=== PATIENT | female | born 1940 | race Caucasian/White ===

== ENCOUNTER → 2017-02-26 10:19 | Outpatient (CLI) | payer MEDICARE, OTHER ==
[~2017-02-26 10:19] MED LIST: CARDIZEM LA120 MG PO; GLUCOSAMINE & C1 CAP PO; IBUPROFEN600 MG PO; VITAMIN D31000 UNIT PO
[2017-05-30 07:07] VITALS: BMI 24.2
== END | disposition home or self-care (01) ==
LOC: D.CT 10:19
DX: R31.9 Hematuria, unspecified (principal)

== ENCOUNTER → 2017-05-04 20:19 | Outpatient (CLI) | payer MEDICARE, OTHER ==
[2017-05-30 07:07] VITALS: BMI 24.2
== END | disposition home or self-care (01) ==
LOC: D.LABREF 20:19
DX: R82.90 Unspecified abnormal findings in urine (principal)

== ENCOUNTER 2017-05-30 05:55 | Day surgery (SDC) | payer MEDICARE, OTHER ==
[~2017-05-30] VITALS: Ht 157.5 cm; Wt 59.9 kg
--- NOTE | ~2017-05-30 | OP ---
PATIENT NAME: SAM LENZ MEDICAL RECORD: [id number] :40 LOCATION:D.OPS ADMISSION DATE: SURGEON: COLLIN ZAVALA MD DATE OF OPERATION: 05/30/2017 SURGEON: Collin Zavala MD ANESTHESIA: MAC by Max Lockhart CRNA. PREOPERATIVE DIAGNOSIS: Hematuria. PROCEDURE: Cystoscopy. FINDINGS: Single ureteral orifices bilaterally. No bladder tumors. Diffuse bladder inflammation. BLOOD LOSS: None. CLINICAL HISTORY: This is a 76-year-old female who had an episode of gross hematuria. At that time, she had a urinary tract infection and this was treated with antibiotics. She had a CT scan of the abdomen and pelvis performed in January of 2017 and this was normal. Gallstones in the gallbladder were seen. Also, sigmoid diverticulosis was seen. Otherwise, the urinary tract was normal. She denies any voiding symptoms at the present time. Urinalysis continues to show microscopic hematuria. Urine cytology was normal. She has never smoked. She comes today for cystoscopy to complete her hematuria workup. She is allergic to CASTOR OIL. She was given Ancef 1 gram IV regional transfer liaison to the OR. DESCRIPTION OF PROCEDURE: The patient was given IV sedation. She was then placed into dorsal lithotomy position and prepped and draped. A 17-Maltese cystoscope with 30-degree lens was used for visualization. She has diffuse bladder inflammation, but no bladder tumors. Single ureteral orifices were seen bilaterally. The bladder was then emptied through the scope and the scope was removed. The patient will be seen in followup on a p.r.n. basis. TRANSINT:[id number] Voice Confirmation ID: [id number] DOCUMENT ID: [id number] COLLIN ZAVALA MD at 1339 CC: [id number] DICTATION DATE: 05/30/17 0916 MANAGER ATHLETICS: 05/30/17 1226 [facility] 05/30/17 [place] [id number]
[~2017-05-30 05:55] MED LIST changes: -IBUPROFEN600 MG PO; -VITAMIN D31000 UNIT PO
[2017-05-30 07:06] LABS: HEMATOCRIT 35.3 % (36.0-48.0); HEMOGLOBIN 11.6 g/dL (12-16); MCH 29.3 pg (26.0-34.0); MCHC 32.9 g/dL (31.0-37.0); MCV 89.1 fL (80.0-100.0); MEAN PLATELET VOLUME 10.8 fL (7.4-10.4); RBC 3.96 10x6/uL (4.00-5.40); RDW 12.8 % (11.5-14.5); WBC 6.1 10x3/uL (4.8-10.8)
[2017-05-30] MEDS ORDERED: IBUPROFEN600 MG PO (07:06)
[2017-05-30 07:07] VITALS: BP 124/82; Ht 157.5 cm; Wt 59.9 kg
[2017-05-30] MEDS ORDERED: VITAMIN D31000 UNIT PO (07:07)
== END 2017-05-30 10:00 | disposition home or self-care (01) ==
LOC: D.OPS 05:55 → D.PAN 08:30 → D.OPS 10:00
PROVIDERS: Anesthesiology
DX: R31.29 Other microscopic hematuria (principal); Z01.812 Encounter for preprocedural laboratory examination

== ENCOUNTER → 2018-01-22 14:28 | Outpatient (CLI) | payer MEDICARE, OTHER ==
[2017-05-30 07:07] VITALS: BMI 24.2
[~2018-01-22 14:28] MED LIST changes: +IBUPROFEN600 MG PO; +VITAMIN D31000 UNIT PO
== END | disposition home or self-care (01) ==
LOC: D.CT 14:28
DX: R10.9 Unspecified abdominal pain (principal)

== ENCOUNTER → 2018-02-08 09:06 | Outpatient (CLI) | payer MEDICARE, OTHER ==
[2017-05-30 07:07] VITALS: BMI 24.2
[~2018-02-08 09:06] MED LIST changes: +BAYER CHEWABLE81 MG PO
== END | disposition home or self-care (01) ==
LOC: D.NM 09:06
DX: K80.20 Calculus of gallbladder without cholecystitis without obstruction (principal)

== ENCOUNTER 2018-02-18 06:07 | Day surgery (SDC) | payer MEDICARE, OTHER ==
[~2018-02-18] VITALS: Ht 157.5 cm; Wt 62.3 kg
[~2018-02-18 06:07] MED LIST changes: -BAYER CHEWABLE81 MG PO
[2018-02-18 06:25] LABS: HEMATOCRIT 35.6 % (36.0-48.0); HEMOGLOBIN 11.8 g/dL (12-16); MCH 29.4 pg (26.0-34.0); MCHC 33.1 g/dL (31.0-37.0); MCV 88.8 fL (80.0-100.0); MEAN PLATELET VOLUME 10.1 fL (7.4-10.4); RBC 4.01 10x6/uL (4.00-5.40); RDW 12.7 % (11.5-14.5); WBC 7.5 10x3/uL (4.8-10.8)
[2018-02-18] MEDS ORDERED: BAYER CHEWABLE81 MG PO (07:12)
[2018-02-18 07:20] VITALS: BP 132/85; Ht 157.5 cm; Wt 62.3 kg
== END 2018-02-18 09:55 | disposition home or self-care (01) ==
LOC: D.OPS 06:07
PROVIDERS: Anesthesiology
DX: K57.30 Diverticulosis of large intestine without perforation or abscess without bleeding (principal); K59.00 Constipation, unspecified; Z01.812 Encounter for preprocedural laboratory examination

== ENCOUNTER → 2018-09-16 21:10 | Outpatient (CLI) | payer MEDICARE ==
[2018-02-18 07:20] VITALS: BMI 25.1
[~2018-09-16 21:10] MED LIST changes: +BAYER CHEWABLE81 MG PO
== END | disposition home or self-care (01) ==
LOC: D.LABREF 21:10
PROVIDERS: ATTEND Urology
DX: R31.9 Hematuria, unspecified (principal)

== ENCOUNTER → 2018-11-15 18:53 | Outpatient (CLI) | payer MEDICARE ==
[2018-02-18 07:20] VITALS: BMI 25.1
== END | disposition home or self-care (01) ==
LOC: D.LABREF 18:53
PROVIDERS: ATTEND Urology
DX: R31.9 Hematuria, unspecified (principal)

== ENCOUNTER → 2018-11-29 18:25 | Outpatient (CLI) | payer MEDICARE ==
[2018-02-18 07:20] VITALS: BMI 25.1
[~2018-11-29 18:25] MED LIST changes: +AMOXICILLIN500 M1 PO; +SEROQUEL25 MG PO; +VIBRAMYCIN 100100 MG PO
== END | disposition home or self-care (01) ==
LOC: D.LABREF 18:25
PROVIDERS: ATTEND Urology
DX: N39.0 Urinary tract infection, site not specified (principal)

== ENCOUNTER 2018-12-03 06:50 | Day surgery (SDC) | payer MEDICARE, OTHER ==
[~2018-12-03] VITALS: Ht 157.5 cm; Wt 62.1 kg
[2018-12-03 07:25] LABS: BASOPHILS 0.8 % (0-2); EOSINOPHILS 1.9 % (0-7); HEMATOCRIT 37.1 % (36.0-48.0); HEMOGLOBIN 12.4 g/dL (12-16); IMMATURE GRANULOCYTES 0.2 % (0-5); LYMPHOCYTES 48.7 % (15-50); MCH 29.7 pg (26.0-34.0); MCHC 33.4 g/dL (31.0-37.0); MCV 88.8 fL (80.0-100.0); MEAN PLATELET VOLUME 10.1 fL (7.4-10.4); MONOCYTES 6.6 % (2-11); NEUTROPHILS 41.8 % (40-80); PLATELET COUNT 263 10x3/uL (130-400); RBC 4.18 10x6/uL (4.00-5.40); RDW 13.2 % (11.5-14.5); WBC 6.4 10x3/uL (4.8-10.8)
[2018-12-03 07:37] LABS: ANION GAP 14.2 mmol/L (8-16); CALCIUM 9.2 mg/dL (8.5-10.1); CARBON DIOXIDE 25.3 mmol/L (21.0-32.0); CREATININE - SERUM 0.9 mg/dL (0.6-1.3); POTASSIUM - SERUM 3.5 mmol/L (3.5-5.1)
[2018-12-03 08:02] VITALS: BP 138/67; Ht 157.5 cm; Wt 62.1 kg
--- NOTE | 2018-12-03 12:45 | NUR ---
1223 IV DC'D. CATHETER INTACT. PRESSURE HELD UNTIL BLEEDING CEASED. BANDAID APPLIED.
--- NOTE | 2018-12-03 13:02 | OP ---
PATIENT NAME: SAM LENZ MEDICAL RECORD: [id number] :40 LOCATION:D.OPS ADMISSION DATE: SURGEON: COLLIN ZAVALA MD DATE OF OPERATION: 12/03/2018 SURGEON: Collin Zavala MD ANESTHESIA: TIVA by Monica Wilkerson CRNA. DIAGNOSES: Urge urinary incontinence, Alzheimer's dementia. PROCEDURES: Cystoscopy, intravesical Botox injection 100 units. ESTIMATED BLOOD LOSS: None. FINDINGS: On cystoscopy, no bladder tumors. Single ureteral orifices bilaterally. CLINICAL HISTORY: This is a 78-year-old female, who has Alzheimer's dementia as well as urge urinary incontinence and recurrent urinary tract infections. She tried Myrbetriq, which did not help. All of the other anticholinergic medications will affect her mental status. Therefore, we are trying intravesical Botox today. SHE IS ALLERGIC TO CASTOR OIL. She was given Ancef fire and explosion investigator to the OR. DESCRIPTION OF PROCEDURE: The patient was given IV sedation. She was placed in lithotomy position and prepped and draped. A 21-Eritrean cystoscope with 30-degree lens was used for visualization. At 10 different locations, 1 mL of the Botox solution was injected into the bladder wall. Each mL contains 10 units of Botox dissolved in it. We spared the ureteral orifices on the trigone. Once all of the injections were done, the bladder was emptied through the scope and the scope was removed. I will see her in followup in 1 months' time. TRANSINT:[id number] Voice Confirmation ID: [id number] DOCUMENT ID: [id number] COLLIN ZAVALA MD at 1302 CC: [id number] DICTATION DATE: 12/03/18 1116 [place] OPERATOR: 12/03/18 1205 [facility] 12/03/18 [place] [id number]
== END 2018-12-03 12:35 | disposition home or self-care (01) ==
LOC: D.OPS 06:50 → D.PAN 10:10 → D.OPS 10:10 → D.PAN 10:15 → D.OPS 12:35
PROVIDERS: Anesthesiology; ATTEND Urology
DX: N39.41 Urge incontinence (principal); G30.9 Alzheimer's disease, unspecified; F02.80 Dementia in other diseases classified elsewhere, unspecified severity, without behavioral disturbance, psychotic disturbance, mood disturbance, and anxiety

== ENCOUNTER → 2019-01-06 18:28 | Outpatient (CLI) | payer MEDICARE ==
[2018-12-03 08:02] VITALS: BMI 25.1
== END | disposition home or self-care (01) ==
LOC: D.LABREF 18:28
PROVIDERS: ATTEND Urology
DX: R33.9 Retention of urine, unspecified (principal)